=== PATIENT | male | born 1955 | race African-American/Black ===

== ENCOUNTER 2023-12-09 10:43 | Day surgery (SDC) | payer OTHER ==
[2023-12-08 11:08] LABS: Absolute Eosinophils 0.1 K/uL (0-0.5); Absolute Lymphocytes (CBC) 1.4 K/uL (0.7-4.9); Absolute Monocytes 0.5 K/uL (0.1-1.3); Absolute Neutrophil 1.5 K/uL (1.8-8.0); Basophils % 1.2 % (0-1.3); Eosinophils % 2.8 % (0-4.4); Hemoglobin 13.7 g/dL (13.6-17.9); Lymphocytes % 39.5 % (15.3-44.8); MCH 31.2 pg (27.0-35.0); MCHC 32.5 g/dL (32.0-36.0); MCV 95.9 fL (80-100); MPV 8.9 fL (7.6-11.3); Monocytes % 14.2 % (3.3-12.3); Neutrophils % 42.3 % (41.7-73.7); Nucleated Red Blood Cells % 0.1 % (0-0); Platelets 131 thou/uL (152-406); RBC Red Blood Cell Count 4.38 M/uL (4.33-5.43); Red Cell Distribution Width 13.3 % (12.1-15.2)
[2023-12-08 11:14] LABS: PT Prothrombin Time 12.4 SECONDS (9.4-12.5); PTT, Activated Partial Thromb 32.2 SECONDS (24.3-36.9); Protime INR 1.11
[2023-12-08 11:22] LABS: Anion Gap 5.1 mEq/L (5.0-15.0); Potassium 4.1 mEq/L (3.5-5.1)
--- NOTE | 2023-12-08 11:40 | EKG ---
Test Date: 2023-12-08 Test Time: 10:55:43 [employer] Reader: KALPNAA MEASUREMENT RESULTS: Intervals: Rate: 82 WY: QRSD: 96 QT: 404 QTc: 472 Hooper: P: W[place]: QRS: 74 T: 48 INTERPRETIVE STATEMENTS: Atrial fibrillation Possible Anterior infarct, age undetermined Abnormal ECG Compared to ECG 11/05/2013 01:25:24 Myocardial infarct finding now present Sinus rhythm no longer present Left ventricular hypertrophy no longer present Electronically Signed On 12-08-23 11:39:25 CDT by James Melara
[2023-12-09] MEDS ORDERED: NA CHLORIDE 0.9% 500 ML ONE (10:44)
[2023-12-09 11:23] VITALS: TEMP 97.2
[2023-12-09] MEDS ORDERED: LIDOCAINE 1% 20 ML MDV ONE (12:46)
[2023-12-09] MEDS ORDERED: VERAPAMIL HCL 10 MG/4 ML VIAL IV ONE (12:46)
[2023-12-09] MEDS ORDERED: HEPA 1000U/500MLS 2,000 UNIT/1,000 ML BAG IV ONE (12:46)
[2023-12-09] MEDS ORDERED: ATROPINE SULF 1 MG/10 ML SYR IV ONE (12:47)
[2023-12-09] MEDS ORDERED: MIDAZOLAM HCL 2 MG/2 ML INJ ONE (12:47)
[2023-12-09] MEDS ORDERED: HEPARIN 5000 UNIT/ML 1 ML VIAL ONE (12:47)
[2023-12-09] MEDS ORDERED: TICAGRELOR 90 MG TABLET PO ONE (12:47)
[2023-12-09] MEDS ORDERED: ASPIRIN 325 MG TAB ONE (12:48)
[2023-12-09] MEDS ORDERED: HEPARIN 10,000 UNIT/10 ML VIAL IV ONE (12:48)
[2023-12-09] MEDS ORDERED: CLOPIDOGREL 75 MG TABLET ONE (12:48)
[2023-12-09] MEDS ORDERED: FENTANYL CITR 100 MCG/2 ML ONE (12:49)
--- NOTE | 2023-12-09 14:40 | OP ---
Date of Procedure: 12/09/2023 Surgeon: SORAIDA AGUILAR Procedures Performed: 1.Selective coronary angiogram. 2.Left heart catheterization. Indication: Pre-open heart surgery. Heart catheterization. Access: Right radial artery 6-Slovak was closed with TR band. Complications: None. Bleeding: Less than 50 mL. Anesthesia: Total sedation time is 30 minutes. Used fentanyl and Versed. Description Of Procedure: After risks, benefits, and alternatives were explained, patient agreed to the procedure and signed informed consent. The patient was brought into the cardiac catheterization laboratory, prepped and draped in the usual sterile fashion. Then, I accessed right radial artery us ing pediatric micropuncture kit and placed 6-Slovak Slender sheath and took 5-Slovak Lutcher 4.0 cathet er over a J-wire into the aortic root, crossed the aortic valve and measured the LVEDP. Pullback did not record any gradient. Then I engaged the left main, took standard views and in the RCA, took sta ndard views, and then I removed the catheter and the sheath, placed TR band with good hemostasis. Findings: 1.Left main is normal. 2.LAD normal. Normal diagonal branches. 3.Left circumflex normal. Normal OM branches. 4.RCA normal and dominant. 5.Normal LVEDP at 9 mmHg. Conclusion: 1.Normal coronary arteries. 2.Normal LVEDP. SR/MODL Voice ID: [id number] Report ID: [id number]
[2023-12-09 15:45] VITALS: BP 120/90; O2SAT 97
== END 2023-12-09 15:35 | disposition home or self-care (01) ==
LOC: CCL 10:43
PROVIDERS: ATTEND Internal Medicine
DX: I34.0 Nonrheumatic mitral (valve) insufficiency (principal); I36.1 Nonrheumatic tricuspid (valve) insufficiency; I48.0 Paroxysmal atrial fibrillation; I10 Essential (primary) hypertension; Z79.01 Long term (current) use of anticoagulants; Z79.899 Other long term (current) drug therapy
CPT/HCPCS: 93005; 85025; 80048; 36415; 85610; 85730; 93458; 76937; C1893; Q9966; J1644; J2001; J2250; J3010; J7040; 99152; 99153; J0461